=== PATIENT | male | born 1940 | race Caucasian/White ===

== ENCOUNTER 2018-06-23 08:07 | Day surgery (SDC) | payer OTHER, MEDICARE ==
[2018-06-23] MEDS ORDERED: DUOVISC 1 KIT OPTH ONE (09:13)
[2018-06-23] MEDS ORDERED: EPINEPHRINE/PF 1 MG/ML AMP ONE (09:13)
[2018-06-23] MEDS ORDERED: BALANCED SALT IRRIG PLAIN 500 ML BTL IRR ONE (09:13)
[2018-06-23] MEDS ORDERED: NS 0.9% VIAL 10 ML ONE (09:13)
[2018-06-23] MEDS ORDERED: MOXIFLOXACIN HCL 10 DROPS/ML **OR USE OPTH ONE (09:14)
[2018-06-23] MEDS ORDERED: NA CHLORIDE 0.9% 500 ML ONE (09:18)
[2018-06-23] MEDS: PHENYLEPHRINE 10% OPTH 5ML ONE ×3 (09:20→09:40)
[2018-06-23] MEDS: CYCLOPENTOLATE 1% OPTH 2 ML ONE ×3 (09:20→09:40)
[2018-06-23] MEDS: TETRACAINE HCL 0.5% 4ML OPTH ONE ×2 (09:21→10:33)
[2018-06-23] MEDS: BUPIVACAINE 0.25% PF 10 ML VIAL ONE ×2 (09:22→10:34)
[2018-06-23] MEDS: LIDOCAINE 2% MPF 5 ML VIAL ONE ×2 (09:22→10:34)
[2018-06-23] MEDS ORDERED: PROPOFOL 200 MG/20 ML VIAL IV ONE ×2 (10:26→10:47)
[2018-06-23] MEDS ORDERED: LIDOCAINE 2% MPF 5 ML VIAL ONE ×3 (10:26→10:55)
--- NOTE | 2018-06-23 11:19 | P.BOP ---
Preoperative diagnosis: Nuclear sclerotic cataract and regular astigmatism OD Postoperative diagnosis: Same Primary procedure: Phacoemulsification with Toric IOL OD Estimated blood loss: None Anesthesia: Local (Subtenon's infusion with anesthesia for cataract surgery) Complications: None Implants: [id number] +18.0 @ 7 degrees Transferred to: Other (Day surgery) Condition: Good
--- NOTE | 2018-06-23 22:58 | OP ---
Date of Procedure: 06/23/2018 Surgeon: Dulce Rodriguez MD Anesthesiologist: Litzy Elena CRNA; Susan Aranda CRNA; and Nacho Burns MD. Preoperative Diagnosis: Nuclear sclerotic cataract and regular astigmatism, right eye. Operation Performed: Phacoemulsification with toric intraocular lens implant, right eye. Anesthesia: Per cataract surgery. Complications: None. Description Of Procedure: In day surgery, the patient was prepped with Betadine and draped. A conju nctival incision was made in the inferior nasal quadrant with Aggie scissors. A sub-Tenon block c onsisting of a 1:1 mixture of 2% Xylocaine and 0.25% bupivacaine was placed through the conjunctival incision with a blunt cannula. A Honan balloon was placed over the eye and the patient was transferr ed to the operating room. In the operating room the patient was prepped and draped in the usual sterile fashion for ophthalmic surgery. A lid speculum was placed in the right eye. Two paracentesis sites were made superiorly an d inferiorly in the limbal cornea. Viscoat was placed in the anterior chamber and a crescent blade w as used to make a corneal groove and tunnel, and a keratome was used to enter the anterior chamber. Provisc was placed in the anterior chamber and a 360 degree capsulotomy was performed with a cystitom e. The lens was hydrodissected with BSS and rotated freely. The lens was removed with a stop and ch op technique. 6.34 phaco CDE was used to remove the lens. Residual cortex was removed with the irri gation and aspiration. Provisc was placed in the capsular bag. A [id number] +18.0 at 7 degrees lens was placed in the capsular bag without complications. Irrigation and aspiration were used to remove res idual viscoelastic. The paracentesis sites were hydrated with BSS. The wound and paracentesis sites were inspected and found to be watertight. Vigamox 0.07 cc was placed intracamerally at the end of the procedure. The eye was irrigated with balanced salt solution. The eye was patched with a soft c otton patch and Lazaro metal shield. The patient was returned to day surgery in good condition. Comments: Discharge Instructions: Mr. Zamora is discharged to home in good condition and is to follow up with Dr. Rodriguez in the morning. JHL/MODL Voice ID: [id number] Report ID: [id number]
== END 2018-06-23 11:40 | disposition home or self-care (01) ==
LOC: OR 08:07
PROVIDERS: ATTEND Ophthalmology Retina Specialist
PROC: 08RJ3JZ Replacement of Right Lens with Synthetic Substitute, Percutaneous Approach (ICD-10-PCS; principal; 2018-06-23 10:15)
DX: H25.11 Age-related nuclear cataract, right eye (principal); H52.221 Regular astigmatism, right eye; I10 Essential (primary) hypertension; E78.00 Pure hypercholesterolemia, unspecified; Z79.899 Other long term (current) drug therapy; Z86.73 Personal history of transient ischemic attack (TIA), and cerebral infarction without residual deficits; Z87.891 Personal history of nicotine dependence
CPT/HCPCS: 66984; J2704 ×2; J0171; V2630; V2787

== ENCOUNTER 2023-11-19 12:41 | Day surgery (SDC) | payer OTHER, MEDICARE ==
[2023-11-18 10:54] LABS: Absolute Eosinophils 0.2 K/uL (0-0.5); Absolute Lymphocytes (CBC) 0.5 K/uL (0.7-4.9); Absolute Monocytes 0.6 K/uL (0.1-1.3); Absolute Neutrophil 3.3 K/uL (1.8-8.0); Basophils % 0.7 % (0-1.3); Eosinophils % 4.2 % (0-4.4); Hematocrit 36.6 % (39.6-49.0); Hemoglobin 12.2 g/dL (13.6-17.9); MCH 35.9 pg (27.0-35.0); MCHC 33.2 g/dL (32.0-36.0); MCV 108.1 fL (80-100); Monocytes % 13.8 % (3.3-12.3); Neutrophils % 71.3 % (41.7-73.7); Nucleated Red Blood Cells % 0.1 % (0-0); Platelets 179 thou/uL (152-406); RBC Red Blood Cell Count 3.39 M/uL (4.33-5.43); Red Cell Distribution Width 15.6 % (12.1-15.2)
[2023-11-18 10:59] LABS: PT Prothrombin Time 12.7 SECONDS (9.4-12.5); PTT, Activated Partial Thromb 27.8 SECONDS (24.3-36.9); Protime INR 1.14
[2023-11-18 11:08] LABS: Anion Gap 8.5 mEq/L (5.0-15.0); Potassium 3.5 mEq/L (3.5-5.1)
[2023-11-18 11:54] LABS: Blood Morphology Comment NOTED (NOT SEEN); Macrocytosis 1+; Platelet Estimate ADEQ; White Blood Cell Scan OK (OK)
--- NOTE | 2023-11-18 12:29 | EKG ---
Test Date: 2023-11-18 Test Time: 10:29:36 Control Panel Tester: DUARTE MEASUREMENT RESULTS: Intervals: Rate: 56 LA: 244 QRSD: 130 QT: 468 QTc: 451 [place]: P: 54 LA: 244 QRS: -11 T: 0 INTERPRETIVE STATEMENTS: Sinus bradycardia with 1st degree AV block Right bundle branch block Abnormal ECG No previous ECG available for comparison Electronically Signed On 11-18-23 12:29:03 CDT by Asa Stephens
--- NOTE | 2023-11-18 13:17 | RAD REPORT ---
EXAMINATION: TWO VIEW CHEST XR CLINICAL INDICATION: Male, 83 years old. [facility] preop pending heart cath. Chest pain TECHNIQUE: 2 view radiographs of the chest were performed. COMPARISON: 06/13/2009 FINDINGS: The lungs are well inflated. Patchy right basilar airspace opacities, appear to be within the middle lobe, could reflect atelectasis or early airspace disease. No pneumothorax or sizable effusion. The heart is normal in size. Mediastinal contours are unremarkable. IMPRESSION: Patchy right basilar opacities probably within the middle lobe, may reflect atelectasis or airspace d isease.
[2023-11-19] MEDS ORDERED: NA CHLORIDE 0.9% 500 ML ONE (13:13)
[2023-11-19] MEDS ORDERED: HEPARIN 10,000 UNIT/10 ML VIAL IV ONE (15:53)
[2023-11-19] MEDS ORDERED: LIDOCAINE 1% 20 ML MDV ONE (15:53)
[2023-11-19] MEDS ORDERED: VERAPAMIL HCL 10 MG/4 ML VIAL IV ONE (15:53)
[2023-11-19] MEDS ORDERED: FENTANYL CITR 100 MCG/2 ML ONE (15:54)
[2023-11-19] MEDS ORDERED: MIDAZOLAM HCL 2 MG/2 ML INJ ONE (15:54)
[2023-11-19] MEDS ORDERED: ATROPINE SULF 1 MG/10 ML SYR IV ONE (15:54)
[2023-11-19] MEDS ORDERED: HEPARIN 5000 UNIT/ML 1 ML VIAL ONE (15:54)
[2023-11-19] MEDS ORDERED: CLOPIDOGREL 75 MG TABLET ONE (15:54)
[2023-11-19] MEDS ORDERED: TICAGRELOR 90 MG TABLET PO ONE (15:55)
[2023-11-19] MEDS ORDERED: ASPIRIN 325 MG TAB ONE (15:55)
[2023-11-19 20:45] VITALS: O2SAT 98
[2023-11-19 21:14] VITALS: BP 137/77
--- NOTE | 2023-12-23 22:37 | OP ---
Date of Procedure: 11/19/2023 Surgeon: KARINA GUNTER Procedures Performed: 1.Selective coronary angiogram. 2.Shockwave lithotripsy of severe OM1 disease. 3.Percutaneous coronary intervention of severe OM1 disease, used 2.75 x 32 mm Synergy drug-eluting s tent. Indication: Unstable angina. Access: 1.Right radial artery 6-Faroese, closed with TR band. 2.Right common femoral artery 6-Faroese closed with Mynx closure device. Complications: None. Bleeding: Less than 50 mL. Total Sedation Time: 1 hour. Description Of Procedure: After risks, benefits, and alternatives were explained, patient agreed to procedure and signed informed consent. The patient was brought into cardiac catheterization laborato , prepped and draped in usual sterile fashion. Then, I accessed right radial artery using CrossChx c micropuncture kit, placed 6-Faroese Slender sheath and there was significant spasm of the radial art cyrus, so I changed access to the common femoral artery on the right. I accessed using micropuncture k it, ultrasound guidance, and fluoroscopy, placed 6-Faroese [place] sheath and took 6-Faroese JL4 mickey ter into aortic root, engaged left main, took standard views and exchanged for 6-Faroese JR4 catheter. Engaged the RCA, took standard views and catheter and then gave systemic heparin to assure ACT leve l above 250 throughout the procedure and took a 6-Faroese EBU 3.5 guide, engaged left main and took Ru nthrough wire into the left circumflex and OM, placed it distally and used a 3.0 shockwave balloon fo r preparing the lesion. Lesion expanded very well and then placed 2.75 x 32 mm Synergy drug-eluting stent in the OM across the long area of stenosis. Excellent expansion, 0% residual stenosis. Then, the wire was removed. Final angiogram was satisfactory. Then, both sheaths were removed and used My nx closure device for the groin access and TR band for the radial access with good hemostasis. Findings: 1.Left main is normal. 2.LAD: Mid 70% heavily calcified, 60% to 70%. The diagonal branch is normal. 3.Left circumflex: Large OM branch that has diffuse 80% and then becomes 95% stenosis, status post successful shockwave lithotripsy and PCI as above. 4.RCA: Large artery with proximal to mid 99% and then mid diffuse 99% stenosis, but there are colla terals from the LAD. Conclusion: 1.Severe OM1 disease, status post successful PCI as above. 2.Severe RCA and moderate LAD disease. Recommendations: 1.Aspirin, Plavix, high-dose statin. 2.Staged PCI of the RCA and FFR of the LAD in 4-6 weeks. SR/MODL Voice ID: [id number] Report ID: [id number]
== END 2023-11-19 21:15 | disposition home or self-care (01) ==
LOC: CCL 12:41
PROVIDERS: ATTEND Internal Medicine
DX: I25.10 Atherosclerotic heart disease of native coronary artery without angina pectoris (principal); I70.203 Unspecified atherosclerosis of native arteries of extremities, bilateral legs; I65.21 Occlusion and stenosis of right carotid artery; I10 Essential (primary) hypertension; E78.5 Hyperlipidemia, unspecified; Z87.891 Personal history of nicotine dependence; Z79.02 Long term (current) use of antithrombotics/antiplatelets; Z79.899 Other long term (current) drug therapy; Z82.49 Family history of ischemic heart disease and other diseases of the circulatory system
CPT/HCPCS: 93005; 85025; 80048; 36415; 85610; 85347 ×2; 85730; 71046; 93454; 76937; 92972; C1893; Q9967; C1725; C9600; J1644; J2001; J2250; J3010; J7040; 93458; 99152; 99153; J0461

== ENCOUNTER 2023-12-23 10:49 | Day surgery (SDC) | payer OTHER, MEDICARE ==
[2023-12-20 15:23] LABS: Absolute Eosinophils 0.2 K/uL (0-0.5); Absolute Lymphocytes (CBC) 0.5 K/uL (0.7-4.9); Absolute Monocytes 0.5 K/uL (0.1-1.3); Absolute Neutrophil 3.5 K/uL (1.8-8.0); Basophils % 0.6 % (0-1.3); Eosinophils % 3.2 % (0-4.4); Hematocrit 36.6 % (39.6-49.0); Hemoglobin 12.4 g/dL (13.6-17.9); Lymphocytes % 11.4 % (15.3-44.8); MCHC 33.9 g/dL (32.0-36.0); MCV 109.4 fL (80-100); MPV 9.6 fL (7.6-11.3); Monocytes % 10.7 % (3.3-12.3); Neutrophils % 74.1 % (41.7-73.7); Platelets 158 thou/uL (152-406); RBC Red Blood Cell Count 3.34 M/uL (4.33-5.43); Red Cell Distribution Width 15.7 % (12.1-15.2)
[2023-12-20 15:28] LABS: PT Prothrombin Time 12.4 SECONDS (9.4-12.5); PTT, Activated Partial Thromb 30.3 SECONDS (24.3-36.9); Protime INR 1.11
[2023-12-20 15:38] LABS: Anion Gap 9.8 mEq/L (5.0-15.0); Potassium 3.8 mEq/L (3.5-5.1)
[2023-12-20 16:09] LABS: Blood Morphology Comment NOT SEEN (NOT SEEN); Macrocytosis 1+; Platelet Estimate ADEQ; White Blood Cell Scan OK (OK)
[2023-12-23] MEDS ORDERED: NA CHLORIDE 0.9% 500 ML ONE (10:51)
[2023-12-23 11:25] VITALS: TEMP 97.8
[2023-12-23] MEDS ORDERED: ATROPINE SULF 1 MG/10 ML SYR IV ONE (12:24)
[2023-12-23] MEDS ORDERED: CLOPIDOGREL 75 MG TABLET ONE (12:24)
[2023-12-23] MEDS ORDERED: HEPARIN 10,000 UNIT/10 ML VIAL IV ONE (12:24)
[2023-12-23] MEDS ORDERED: LIDOCAINE 1% 20 ML MDV ONE (12:24)
[2023-12-23] MEDS ORDERED: HEPA 1000U/500MLS 2,000 UNIT/1,000 ML BAG IV ONE (12:24)
[2023-12-23] MEDS ORDERED: MIDAZOLAM HCL 2 MG/2 ML INJ ONE (12:25)
[2023-12-23] MEDS ORDERED: FENTANYL CITR 100 MCG/2 ML ONE (12:25)
--- NOTE | 2023-12-23 12:38 | EKG ---
Test Date: 2023-12-20 Test Time: 15:09:50 Electric Repair Supervisor: BUDDY MEASUREMENT RESULTS: Intervals: Rate: 63 [place]: 242 QRSD: 126 QT: 446 QTc: 456 [place]: P: 60 IL: 242 QRS: -12 T: 0 INTERPRETIVE STATEMENTS: Sinus rhythm with marked sinus arrhythmia with 1st degree AV block Right bundle branch block Abnormal ECG Compared to ECG 11/18/2023 10:29:36 Sinus bradycardia no longer present Electronically Signed On 12-23-23 12:37:02 CDT by Asa Stephens
[2023-12-23] MEDS ORDERED: NITROGLYCERIN/D5W 50 MG/250 ML BTL IV ONE (12:53)
[2023-12-23] MEDS ORDERED: REGADENOSON 0.4 MG/5 ML SYR IV ONE (13:01)
[2023-12-23 16:28] VITALS: O2SAT 99
[2023-12-23 16:59] VITALS: BP 129/52
--- NOTE | 2023-12-24 00:41 | OP ---
Surgeon: KARINA GUNTER Procedures Performed: 1.Selective coronary angiogram. 2.Left heart catheterization. 3.FFR of mid LAD, moderate to severe disease. It was not significant at 0.84. 4.Failed PCI attempt of the RCA TEACHER DRAMATICS. Indication: Coronary artery disease with chest pain. Access: Right common femoral artery 6-[place]izen [place], closed with 6-[place]izen [place] Mynx closure device. Complications: None. Bleeding: Less than 50 mL. Anesthesia: Total sedation time was 1 hour. Description Of Procedure: After risks, benefits, and alternatives were explained, the patient agreed to procedure and signed informed consent. The patient was brought into the cardiac catheterization laboratory, prepped and draped in usual sterile fashion. Then, I accessed the common femoral artery using micropuncture kit, ultrasound guidance, fluoroscopy, placed 6-[place]izen [place]on sheath, and took a 6-[place]izen [place] JL4 catheter into aortic root, engaged left main, took standard views, and took a 6-[place]izen [place] EBU3.5 guide into the aortic root, engaged left main, gave systemic heparin to assure ACT level abov e 250 and took FFR pressure wire into the aortic root. Pressures were equalized and then the wire wa s advanced into the LAD passing the area of stenosis, performed FFR using Lexiscan. It was not signi ficant at 0.84. Then, the wire was pulled back. There was no drift. Final angiogram showed no comp lications. Then, I exchanged for 6-[place]izen [place] JR4 guide, engaged the RCA, and I was unable to cross the TEACHER DRAMATICS. I used a run-through wire and Fielder XT with the microcatheter and could not pass through. Th ere is very good collaterals from the LAD since the LAD is not ischemic, decided to leave the RCA monica ne. Then, removed the catheter and the guide and the sheath and Mynx closure device used for closure with good hemostasis. Findings: 1.Left main is normal. 2.LAD, normal segment proximally and in the mid segment, there was a long heavily calcified 60% to 7 0% stenosis and FFR was insignificant at 0.84. 3.Left circumflex, widely patent stent. 4.RCA, has proximal 90%, mid 99%, and then 100%, but there is very good collaterals from the LAD, fa iled PCI. 5.LVEDP is borderline at 40 mmHg. Conclusions: 1.Severe RCA stenosis, but with good collaterals from the LAD and failed attempt PCI. It will be le ft to medical management. 2.Moderate mid LAD stenosis, negative by FFR. Plan: For stress test in 1 year. SR/MODL Voice ID: [id number] Report ID: [id number]
== END 2023-12-23 16:55 | disposition home or self-care (01) ==
LOC: CCL 10:49
PROVIDERS: ATTEND Internal Medicine
DX: I25.10 Atherosclerotic heart disease of native coronary artery without angina pectoris (principal); I25.82 Chronic total occlusion of coronary artery; I35.0 Nonrheumatic aortic (valve) stenosis; I65.21 Occlusion and stenosis of right carotid artery; I73.9 Peripheral vascular disease, unspecified; I10 Essential (primary) hypertension; E78.5 Hyperlipidemia, unspecified; Z95.5 Presence of coronary angioplasty implant and graft; Z87.891 Personal history of nicotine dependence; Z79.02 Long term (current) use of antithrombotics/antiplatelets; Z79.899 Other long term (current) drug therapy; Z82.49 Family history of ischemic heart disease and other diseases of the circulatory system
CPT/HCPCS: 36415; 76937; 80048; 85025; 85347; 85610; 85730; 92920; 93005; 93458; 93571; 99152; 99153; C1725; C1769; C1887; C1893; J0461; J2003; J2250; J2785; J3010; J7040; Q9967

== ENCOUNTER 2024-04-14 23:04 | Emergency (ER) | payer OTHER, MEDICARE ==
[2024-04-15] MEDS ORDERED: NA CHLORIDE 0.9% 500 ML ONE (00:12)
[2024-04-15 00:39] LABS: Absolute Eosinophils 0.1 K/uL (0-0.5); Absolute Lymphocytes (CBC) 0.3 K/uL (0.7-4.9); Absolute Monocytes 1.4 K/uL (0.1-1.3); Basophils % 0.2 % (0-1.3); Eosinophils % 0.9 % (0-4.4); Hematocrit 34.3 % (39.6-49.0); Hemoglobin 11.6 g/dL (13.6-17.9); Lymphocytes % 2.2 % (15.3-44.8); MCH 36.2 pg (27.0-35.0); MCHC 33.8 g/dL (32.0-36.0); MCV 107.3 fL (80-100); Monocytes % 10.2 % (3.3-12.3); Neutrophils % 86.5 % (41.7-73.7); Platelets 143 thou/uL (152-406); RBC Red Blood Cell Count 3.19 M/uL (4.33-5.43); Red Cell Distribution Width 15.2 % (12.1-15.2)
[2024-04-15 00:47] LABS: Albumin 3.6 g/dL (3.4-5.0); Anion Gap 8.6 mEq/L (5.0-15.0); Bilirubin Total 0.4 mg/dL (0.2-1.0); Globulin 3.5 g/dL (2.3-3.5); Potassium 3.6 mEq/L (3.5-5.1); Protein, Total 7.1 g/dL (6.4-8.2)
[2024-04-15 00:56] LABS: Specific Gravity 1.012 (1.005-1.030); Sqamous Epithelial None Seen /HPF (None Seen); Urine Bacteria None Seen /HPF (<20); Urine Bilirubin NEGATIVE (Negative); Urine Blood 3+ (OVER) (Negative); Urine Clarity Extremely Turbid (Clear); Urine Color Red (Yellow); Urine Culture Reflex Order REFLEXED; Urine Glucose NEGATIVE (Negative); Urine Ketones NEGATIVE (Negative); Urine Microscopic Reflex YN ORDER UMIC; Urine Nitrite NEGATIVE (Negative); Urine Protein 3+ (Negative); Urine RBC >50 /HPF (None Seen); Urine Urobilinogen Normal (Normal); Urine WBC >50 /HPF (<5)
[2024-04-15 01:28] LABS: Band Neutrophils 26 % (0-1); Differential Total Cells Count 100; Lymphocytes 1 % (15-42); Monocytes 13 % (0-10); Segmented Neutrophils 60 % (40-80)
[2024-04-15 01:29] LABS: Blood Morphology Comment NOTED (NOT SEEN); Macrocytosis 1+; Platelet Estimate ADEQ
--- NOTE | 2024-04-15 03:40 | RAD REPORT ---
PROCEDURE: CT Abdomen and Pelvis Without and With Intravenous Contrast CLINICAL INDICATION: The patient is 83 years old and is Male; HEMATURIA Bed: 19 TECHNIQUE: Axial computed tomography images of the abdomen and pelvis without and with intravenous contrast. S agittal and coronal reformatted images were created and reviewed. This CT exam was performed using one or more of the following dose reduction techniques: automated exposure control, adjustmen t of the mA and/or kV according to patient size, and/or use of iterative reconstruction technique. COMPARISON: No relevant prior studies available. FINDINGS: LUNG BASES: Peripheral and dependent bibasilar scarring and honeycombing seen within the visualized lung bases. No consolidation. MEDIASTINUM: Small hiatal hernia. ABDOMEN: LIVER: Unremarkable No mass. GALLBLADDER AND BILE DUCTS: Contracted appearance of the gallbladder. No calcified stones. No ductal dilation. PANCREAS: Unremarkable No mass. No ductal dilation. SPLEEN: Unremarkable No splenomegaly. ADRENALS: Unremarkable No mass. KIDNEYS AND URETERS: Exophytic heterogenous enhancing solid and cystic mass involving the inferior margin of the inferior pole the right kidney, most compatible with a renal cell carcinoma and measuring 4.1 x 3.6 x 3.8 cm. Nonobstructing stones within the inferior pole the right kidney. STOMACH AND BOWEL: Fecalization contents of multiple loops of small bowel. Nonspecific, but suggest s decreased motility. Colonic diverticulosis without evidence of acute diverticulitis. No evidence of small or large bowel obstruction. PELVIS: APPENDIX: No findings to suggest acute appendicitis. BLADDER: Trabeculated appearance of the urinary bladder suggesting chronic outflow obstruction. No stones. REPRODUCTIVE: The prostate gland is enlarged. Correlation with PSA values may be helpful if not p reviously performed. ABDOMEN and PELVIS: INTRAPERITONEAL SPACE: Unremarkable No free air. No significant fluid collection. BONES/JOINTS: Multilevel remote right-sided rib fractures. No dislocation. SOFT TISSUES: Small fat-containing bilateral inguinal hernias. VASCULATURE: Severe partially visualized descending thoracic and abdominal aortic calcified atheros clerosis without aneurysmal dilatation. Multivessel coronary calcifications with superimposed coronary stents. LYMPH NODES: Unremarkable No enlarged lymph nodes. IMPRESSION: 1. Exophytic heterogenous enhancing solid and cystic mass involving the inferior margin of the infe rior pole the right kidney, most compatible with a renal cell carcinoma and measuring 4.1 x 3.6 x 3.8 cm. Urology consultation recommended. 2. No suspicious abdominal pelvic lymphadenopathy or suspicious lytic or blastic bone lesions ident ified. 3. Prostatomegaly with trabeculated appearance of the urinary bladder suggesting chronic outflow ob struction. Correlation with PSA values may be helpful if not previously performed. 4. Fecalization contents of multiple loops of small bowel. Nonspecific, but suggests decreased wiley lity. 5. Colonic diverticulosis without evidence of acute diverticulitis. 6. Peripheral and dependent bibasilar scarring and honeycombing seen within the visualized lung bas es. No consolidation. 7. Additional nonacute findings as above. Electronically signed by: Leodan Nash MD 04/15/2024 03:34 AM [facility] Due to temporary technical issues with the [employer] reporting system, reports are being sumit d by the in-house radiologist without review as a courtesy to ensure prompt reporting the interpreting radiologist is fully responsible for the content of the report. Transcribed Date/Time: 04/15/2024 3:40 AM
--- NOTE | 2024-04-15 03:52 | ER ---
Nurse's Notes [facility] Name: Jose Armando Zamora Age: 83 yrs Sex: Male : 1940 Arrival Date: 04/14/2024 Time: 23:04 Bed 19 Private MD: Diagnosis: Gross hematuria;Right inferior renal mass, bleeding secondary to clopidogrel. Presentation: 04/14 23:30 Chief complaint: Patient states: BURNING, URGENCY AND HEMATURIA WITH URINATION X2 DAYS. jj7 Coronavirus screen: At this time, the client does not indicate any symptoms associated with coronavirus-19. Ebola Screen: No symptoms or risks identified at this time. Initial Sepsis Screen: Does the patient meet any 2 criteria? No. Patient's initial sepsis screen is negative. Does the patient have a suspected source of infection? No. Patient's initial sepsis screen is negative. Risk Assessment: Do you want to hurt yourself or someone else? Patient reports no desire to harm self or others. Onset of symptoms was April 12, 2024. 23:30 Method Of Arrival: Ambulatory [facility] 23:30 Acuity: ORIANA 3 jj7 Triage Assessment: 23:30 General: Appears in no apparent distress. comfortable, Behavior is calm, cooperative, jj7 appropriate for age. Pain: Denies pain. Historical: - Allergies: 23:55 No Known Allergies; jj7 - PMHx: 23:55 Hypertensive disorder; HYPERLIPIDEMIA; jj7 - PSHx: 23:55 STENTS; jj7 - Immunization history:: Adult Immunizations up to date. - Infectious Disease History:: Denies. - Social history:: Smoking status: Patient denies any tobacco usage or history of. Patient/guardian denies using alcohol, street drugs, IV drugs. Screenin:30 [facility] ED Fall Risk Assessment (Adult) History of falling in the last 3 months, jj7 including since admission No falls in past 3 months (0 pts) Confusion or Disorientation No (0 pts) Intoxicated or Sedated No (0 pts) Impaired Gait No (0 pts) Mobility Assist Device Used No (0 pt) Altered Elimination No (0 pt) Score/Fall Risk Level 0 - 2 = Low Risk Oriented to surroundings, Maintained a safe environment, Educated pt \T\ family on fall prevention, incl call for assistance when getting out of bed, Assessed \T\ reinforced patient's understanding of fall precautions. Abuse screen: Denies threats or abuse. Nutritional screening: No deficits noted. Tuberculosis screening: No symptoms or risk factors identified. Assessment: 23:30 Reassessment: SEE TRIAGE ASSESSMENT. j7 Vital Signs: 23:30 BP 155 / 76; Pulse 82; Resp 16; Temp 98.8; Pulse Ox 99% ; Weight 82.1 kg; Height 5 ft. jj7 10 in. ; Pain 0/10; 04/15 00:30 BP 153 / 78; Pulse 79; Resp 16; Pulse Ox 99% ; jj7 01:30 BP 178 / 94; Pulse 89; Resp 16; Pulse Ox 99% ; jj7 02:30 BP 162 / 59; Pulse 86; Resp 16; Pulse Ox 95% ; jj7 03:30 BP 150 / 83; Pulse 98; Resp 18; Pulse Ox 97% ; j7 04/14 23:30 Body Mass Index 25.97 (82.10 kg, 177.8 cm) j7 04/14 23:30 Pain Scale: Adult [facility] ED Course: 04/14 23:11 Patient arrived in ED. jj6 23:16 [facility]onal W[facility]C [facility]. kb 23:16 Kar Pabon MD is Attending Physician. kb 23:30 Arm band placed on right wrist. Patient placed in an exam room, on a stretcher. jj7 23:30 Patient has correct armband on for positive identification. Bed in low position. Call j light in reach. Adult w/ patient. Provided Education on: USE OF CALL MACDONALD. 23:41 Kimberley Frost RN is Primary Nurse. jj7 23:45 Triage completed. j7 04/15 00:11 CBC with Diff Sent. jj7 00:11 CMP Sent. jj7 00:13 Initial lab(s) drawn, by me, sent to lab. Inserted saline lock: 20 gauge in right rk3 antecubital area, using aseptic technique. Blood collected. Flushed with 10 mL NS. 01:35 CT Abd/Pelvis- W/WO Contrast In Process Unspecified. EDMS 03:50 Maddie Gee MD is Referral Physician. sp4 03:50 Cristino Dhillon MD is Referral Physician. sp4 04:12 No provider procedures requiring assistance completed. IV discontinued, intact, jj7 bleeding controlled, No redness/swelling at site. Pressure dressing applied. Administered Medications: 00:10 Drug: NS 0.9% IV 500 ml 500 ml IV at 1 bolus once; to be given as a bolus over 30 jj7 minutes Volume: 500 ml; Route: IV; Rate: 1 bolus; Site: right antecubital; 00:58 Follow up: Response: No adverse reaction; IV Status: Completed infusion; IV Intake: lg3 500ml Medication: 04/14 23:30 VIS not applicable for this client. jj7 Intake: 04/15 00:58 IV: 500ml; Total: 500ml. lg3 Outcome: 03:51 Discharge ordered by . sp4 04:12 Discharged to home ambulatory, with significant other, jj7 04:12 Condition: stable 04:12 Discharge instructions given to patient, significant other, Instructed on discharge instructions, follow up and referral plans. medication usage, Demonstrated understanding of instructions, follow-up care, medications, Prescriptions given X 1, 04:14 Patient left the ED. jj7 Signatures: Dispatcher [employer] EDMS Sonal Wray, POWDER TRUCK DRIVER-C POWDER TRUCK DRIVER-CkPriscila aZmudio RN RN lg3 Uzma Baker jj6 Kimberley Frost RN RN jj7 Kar Pabon MD MD sp4 Juan Jose Richards rk3
--- NOTE | 2024-04-15 03:52 | EDPHYS ---
Physician Documentation [facility] Name: Jose Armando Zamora Age: 83 yrs Sex: Male : 1940 Arrival Date: 04/14/2024 Time: 23:04 Bed 19 Private MD: ED Physician Kar Pabon HPI: 04/14 23:17 This 83 yrs old Male presents to ER via Unassigned with complaints of Fever, HEMATURIA. kb 23:17 Pt is an 83 year old male who presents for hematuria, dysuria, and urinary frequency kb that started last night. Reports very low grade fever. Denies abd pain, flank pain. . Historical: - Allergies: 23:55 No Known Allergies; jj7 - PMHx: 23:55 Hypertensive disorder; HYPERLIPIDEMIA; jj7 - PSHx: 23:55 STENTS; jj7 - Immunization history:: Adult Immunizations up to date. - Infectious Disease History:: Denies. - Social history:: Smoking status: Patient denies any tobacco usage or history of. Patient/guardian denies using alcohol, street drugs, IV drugs. ROS: 23:17 Constitutional: As per HPI kb Exam: 23:17 Constitutional: This is a well developed, well nourished patient who is awake, alert, kb and in no acute distress. Head/Face: Normocephalic, atraumatic. ENT: Moist Mucous membranes Cardiovascular: Regular rate Respiratory: Respirations even and unlabored. No increased work of breathing. Talking in full sentences Abdomen/GI: Soft, non-tender. No distention Back: No spinal tenderness. No costovertebral tenderness. Full range of motion. Skin: Warm, dry with normal turgor. Normal color. MS/ Extremity: Pulses equal, no cyanosis. Neurovascular intact. Full, normal range of motion. Neuro: Awake and alert, GCS 15, oriented to person, place, time, and situation. Vital Signs: 23:30 BP 155 / 76; Pulse 82; Resp 16; Temp 98.8; Pulse Ox 99% ; Weight 82.1 kg; Height 5 ft. jj7 10 in. ; Pain 0/10; 04/15 00:30 BP 153 / 78; Pulse 79; Resp 16; Pulse Ox 99% ; jj7 01:30 BP 178 / 94; Pulse 89; Resp 16; Pulse Ox 99% ; j7 02:30 BP 162 / 59; Pulse 86; Resp 16; Pulse Ox 95% ; jj7 03:30 BP 150 / 83; Pulse 98; Resp 18; Pulse Ox 97% ; jj7 04/14 23:30 Body Mass Index 25.97 (82.10 kg, 177.8 cm) 7 04/14 23:30 Pain Scale: Adult [facility] MDM: 04/14 23:16 Medical Screening Exam initiated kb 04/15 00:19 Data reviewed: vital signs, nurses notes. Transition of care: After a detail discussion kb of the patient's case, care is transferred to Kar Pabon MD. 03:48 ED course: IMPRESSION: 1. Exophytic heterogenous enhancing solid and cystic mass sp4 involving the inferior margin of the inferior pole the right kidney, most compatible with a renal cell carcinoma and measuring 4.1 x 3.6 x 3.8 cm. Urology consultation recommended. 2. No suspicious abdominal pelvic lymphadenopathy or suspicious lytic or blastic bone lesions identified. 3. Prostatomegaly with trabeculated appearance of the urinary bladder suggesting chronic outflow obstruction. Correlation with PSA values may be helpful if not previously performed. 4. Fecalization contents of multiple loops of small bowel. Nonspecific, but suggests decreased motility. 5. Colonic diverticulosis without evidence of acute diverticulitis. 6. Peripheral and dependent bibasilar scarring and honeycombing seen within the visualized lung bases. No consolidation. 7. Additional nonacute findings as above. Electronically signed by: Leodan Nash MD 04/15/2024 03:34 AM. 03:56 Differential diagnosis: viral Infection, bacterial infection, URI, bronchitis, UTI, sp4 gastroenteritis. Consideration of Admission/Observation Escalation of care including admission/observation considered. ED course: CT has revealed - 1. Exophytic heterogenous enhancing solid and cystic mass involving the inferior margin of the inferior pole the right kidney, most compatible with a renal cell carcinoma and measuring 4.1 x 3.6 x 3.8 cm. Urology consultation recommended.. ED course: Patient was advised to stay in the hospital to see urologist. Patient declines admission at this time stating he is tired. Patient advised to discontinue Plavix and aspirin. Will recommend for patient to contact his senior oracle developer today to see about discontinuation of Plavix and aspirin. Patient also advised to have an outpatient visit with Dr. Dhillon with urology above right lower renal mass. Also consultation with Oncology Dr. Cruz about evaluation for right renal mass. . 04/14 23:21 Order name: CBC with Diff; Complete Time: 03:28 kb 04/14 23:21 Order name: CMP; Complete Time: 00:48 kb 04/14 23:21 Order name: Urinalysis w/ reflexes; Complete Time: 03:28 kb 04/15 00:46 Order name: Manual Differential; Complete Time: 03:28 EDMS 04/15 01:01 Order name: Urine Culture EDMS 04/14 23:21 Order name: CT Abd/Pelvis- W/WO Contrast; Complete Time: 03:54 kb 04/14 23:21 Order name: IV Saline Lock; Complete Time: 00:11 kb 04/14 23:21 Order name: Labs collected and sent; Complete Time: 00:11 kb Administered Medications: 00:10 Drug: NS 0.9% IV 500 ml 500 ml IV at 1 bolus once; to be given as a bolus over 30 jj7 minutes Volume: 500 ml; Route: IV; Rate: 1 bolus; Site: right antecubital; 00:58 Follow up: Response: No adverse reaction; IV Status: Completed infusion; IV Intake: lg3 500ml Disposition: 03:48 Co-signature as Attending Physician, Kar Pabon MD I agree with the assessment sp4 and plan of care. I reviewed the patient's care provided by Advanced Practice Provider \T\ agree w/ the diagnosis \T\ care plan. I personally saw the pt \T\ performed a substantive portion of the visit, incldng all aspects of the (History/Exam/Medical Decision Making). Disposition Summary: 04/15/24 03:51 Discharge Ordered Problem: new sp4 Symptoms: have improved sp4 Condition: Stable sp4 Diagnosis - Gross hematuria sp4 - Right inferior renal mass, bleeding secondary to clopidogrel. sp4 Followup: sp4 - With: Maddie Gee MD - When: 7 - 10 days - Reason: Recheck today's complaints Followup: sp4 - With: Cristino Dhillon MD - When: 7 - 10 days - Reason: Recheck today's complaints Discharge Instructions: - Discharge Summary Sheet sp4 - Renal Mass sp4 Forms: - Patient Portal Instructions sp4 Prescriptions: - Cephalexin 500 mg Oral Capsule - take 1 capsule ORAL route every 12 hours for 10 days; 20 capsule; Refills: 0, sp4 Product Selection Permitted Signatures: Dispatcher [employer] Sonal Vega, PATC Kimberley Christianson RN RN jj7 Kar Pabon MD MD sp4 Priscila Dejesus RN lg3
[2024-04-15 06:55] VITALS: TEMP 98.8
[2024-04-15 07:00] VITALS: BP 150/83; O2SAT 97
== END 2024-04-15 04:14 | disposition home or self-care (01) ==
LOC: ER 23:04
DX: R31.0 Gross hematuria (principal); N28.89 Other specified disorders of kidney and ureter; D68.32 Hemorrhagic disorder due to extrinsic circulating anticoagulants; N20.0 Calculus of kidney
CPT/HCPCS: 36415; 74178; 80053; 81001; 85025; 87086; 87088; J7040; Q9967